=== PATIENT | male | born 1980 | race Caucasian/White ===

== ENCOUNTER → 2021-12-16 12:53 | Outpatient (BNVA) | payer OTHER, SELFPAY | PROVIDERS: PCP Physician Assistant Medical; Visit Provider Physician Assistant | DX: E66.01 Morbid (severe) obesity due to excess calories (principal); Z68.43 Body mass index [BMI] 50.0-59.9, adult; E03.9 Hypothyroidism, unspecified; G47.33 Obstructive sleep apnea (adult) (pediatric); Z99.89 Dependence on other enabling machines and devices | CPT/HCPCS: 99202 ==

== ENCOUNTER 2025-03-14 23:15 | Emergency (ER) | payer SELFPAY ==
[2025-03-14 23:27] VITALS: BP 135/82; PULSE 82; RESP 17; TEMP 36.6; O2SAT 97; BMI 41.3
[2025-03-14 23:44] LABS: MANUAL DIFF FLAG NO
[2025-03-14 23:46] LABS: Hematocrit 41.9 % (42.0-52.0); Hemoglobin 14.8 g/dl (14.0-18.0); Imm Gran Abs Auto 0.04 X10*3/uL (0.00-0.03); Imm Gran Pct Auto 0.4 % (0.0-0.4); Lymphocytes Absolute Auto 2.7 X10*3/uL (1.2-4.9); Mean Corpuscular HGB Conc 35.3 g/dl (31.0-36.0); Mean Corpuscular Hemoglobin 29.1 pg (27.0-33.0); Mean Corpuscular Volume 82.3 fL (80.0-98.0); NRBC Abs Auto 0.000 X10*3/uL (0.0-0.012); NRBC Pct Auto 0.0 /100WBC (0.0-0.2); Platelet Count 284 X10*3/uL (160-400); Red Blood Count 5.09 X10*6/uL (4.60-5.80); White Blood Count 9.4 X10*3/uL (4.8-10.8)
--- NOTE | 2025-03-15 00:02 | ED_ITS ---
HPI - General Adult General Chief complaint: Recheck/Abnormal Lab/Rx Stated complaint: high bs Time Seen by Provider: 03/14/25 23:59 Source: patient Mode of arrival: ambulatory Limitations: no limitations History of Present Illness ED Provider: Terry Rivera PA-C HPI narrative: 45-year-old male with history of T2DM, GERD, CELIA, hypothyroidism,presents to the ED tonight after checking his blood sugar and getting a read of 455 on his home glucose monitor after ingesting a large eclair for dinner. Patient states he takes metformin to control his diabetes, but has not seen a PCP in over a year due to not having access to health insurance. Patient states he is not having any symptoms, just decided to randomly check his blood sugar tonight, when he saw the high read he thought he should come to the ED for further evaluation. Denies chest pain, shortness of breath, vomiting, nausea, diarrhea, dizziness, lightheadedness, syncope, headaches, visual changes Related Data Home Medications ?Medication ?Instructions ?Recorded ?Confirmed levothyroxine 75 mcg capsule 75 mcg PO DAILY 12/16/21 omeprazole 20 mg capsule,delayed 20 mg PO DAILY release venlafaxine 150 mg tablet,extended 150 mg PO DAILY release 24 hr Allergies Allergy/AdvReac Type Severity Reaction Status Date / Time No Known Allergies Allergy Verified 03/14/25 23:29 Review of Systems 2 Review of Systems: CONST: Negative for fever, body aches and chills. HENT: Negative for neck pain/stiffness, headache, congestion, sore throat, swelling. EYES: Negative for discharge/pain or vision changes. RESP: Negative for cough/hemoptysis and shortness of breath. CV: Negative chest pain, difficulty breathing, palpitations. ABD: Negative pain, nausea, vomiting. : Negative increase frequency, dysuria, blood in urine or stool. MUSC: Negative for muscle aches, edema. SKIN: Negative rash, lesions/sores. NEURO: Negative headache, dizziness, weakness Yes all other systems are reviewed and are negative [facility] Family History Family History (Updated 12/16/21 @ 13:19 by Jazmin Ruiz) Mother Family history of thyroid problem Rheumatic arthritis of temporomandibular joint Father Diabetes Brother Kidney problem Daughter ADHD (attention deficit hyperactivity disorder) ADD (attention deficit disorder) Social History Social History (Updated 12/16/21 @ 13:15 by Jazmin Ruiz) Alcohol intake: former Patient Tobacco Use Status: Never used Tobacco Use of substances other than those prescribed or required for medical reasons: No Advance Directives: No Advance Directives Information Provided: Yes Do you have a plan to hurt others: No Plan Physical Exam ED Vital Signs: Vital Signs - 24 hr 03/14/25 23:27 Temperature 97.9 F Pulse Rate 82 Respiratory Rate 17 Blood Pressure 135/82 Pulse Oximetry 97 Oxygen Delivery Method Room Air BMI result Body Mass Index 41.3 GENERAL APPEARANCE: ?AxOx4, generally well-appearing, no acute distress. HEENT: ?NC, AT. MMM. EOMI, clear conjunctiva, oropharynx clear. HEART:? Normal rate and regular rhythm, normal S1/S1, no m/r/g LUNGS:? CTAB, moving air well. No crackles or wheezes are heard. EXTREMITIES: ?Without cyanosis, clubbing or edema. NEUROLOGICAL: ?Grossly nonfocal. Alert and oriented, moving all 4 extremities. Observed to ambulate with normal gait. Skin: ?Warm and dry without any rash. Medications Administered Discontinued Medications Generic Name Dose Route Start Last Admin Trade Name Freq PRN Reason Stop Dose Admin Lactated Ringer's 1,000 mls @ 999 mls/hr 03/15/25 01:10 03/15/25 03:19 Lr IV 03/15/25 02:10 Infused .Q1H1M ONE Infusion Insulin Human Lispro 6 unit 03/15/25 01:10 03/15/25 01:27 Insulin Lispro 100 Unit/Ml 3 Ml Vial SUBCUT 03/15/25 01:11 6 unit ONCE ONE Administration Medical Decision Making Medical Decision Making MDM Narrative: 45-year-old male with history of obesity, T2DM, GERD, presents to the ED tonight after checking his blood sugar and getting a read of 455 on his home glucose monitor after ingesting a large eclair for dinner. Patient states he takes metformin to control his diabetes, but has not seen a PCP in over a year due to not having access to health insurance. Patient states he is not having any symptoms, just decided to randomly check his blood sugar tonight, when he saw the high read he thought he should come to the ED for further evaluation. Labs reveal mild hyponatremia at 131, this is likely pseudohyponatremia due to elevated serum glucose at 590. Beta hydroxybutyrate mildly elevated at 1.42, no anion gap, VBG does not reveal acidosis- less likely DKA/HHS. Patient does not have any physical symptoms. Physical exam benign, lungs clear to auscultation, cardiac exam does not reveal any murmur, rubs or gallops. Abdomen nontender, nondistended. Patient started on IV fluids, given 6 units of subcutaneous insulin. We will reassess glucose level after fluids finish. Course 03:22- POC glucose 394 after 6 units insulin and 1L IV fluids, will recheck CBC and CMP. 04:20- labs rechecked, all WNL, pseudohyponatremia resolved at 1:37 a.m. glucose now 383. Patient is stable for discharge. Counseled patient to establish health insurance for PCP follow up, and following diabetic diet. Differential Diagnosis Differential Diagnoses: The differential diagnosis associated with the presentation includes DKA HHS electrolyte imbalance Elevated glucose Admission/Observation Consideration of admission/observation: Escalation of care including admission/observation considered Lab Data [facility] Lab Attestation statement: I reviewed the patient's lab results. 03/15/25 03:56 03/15/25 03:56 Labs: Lab Results 03/14/25 03/14/25 03/15/25 Range/Units 23:34 23:39 00:47 WBC 9.4 (4.8-10.8) X10*3/uL RBC 5.09 (4.60-5.80) X10*6/uL Hgb 14.8 (14.0-18.0) g/dl Hct 41.9 L (42.0-52.0) % MCV 82.3 (80.0-98.0) fL MCH 29.1 (27.0-33.0) pg MCHC 35.3 (31.0-36.0) g/dl RDW 13.1 (11.0-16.0) % Plt Count 284 (160-400) X10*3/uL MPV 9.0 L (9.4-12.4) fL Immature Gran % (Auto) 0.4 (0.0-0.4) % Neut % (Auto) 62.7 (45-73) % Lymph % (Auto) 28.3 (20-40) % [place] % (Auto) 6.3 (2-11) % Eos % (Auto) 2.0 (0-4) % Baso % (Auto) 0.3 (0-2) % Lymph # (Auto) 2.7 (1.2-4.9) X10*3/uL [place] # (Auto) 0.6 (0.1-1.2) X10*3/uL Eos # (Auto) 0.2 (0.0-0.4) X10*3/uL Baso # (Auto) 0.0 (0.0-0.2) X10*3/uL Abs Immat Gran (auto) 0.04 H (0.00-0.03) X10*3/uL Absolute Neuts (auto) 5.9 (2.0-8.3) x10*3/uL Absolute Nucleated RBC 0.000 (0.0-0.012) X10*3/uL Nucleated RBC % (auto) 0.0 (0.0-0.2) /100WBC VBG pH 7.36 (7.32-7.43) VBG pCO2 49 mmHg VBG pO2 47 mmHg VBG HCO3 28 H (22-26) mmol/L VBG O2 Saturation 73.0 % VBG Base Excess 2.2 mmol/L Sodium 131 L (135-145) mmol/L Potassium 4.2 (3.3-5.1) mmol/L Chloride 98 (96-108) mmol/L Carbon Dioxide 25 (22-29) mmol/L Anion Gap 12 (12-20) BUN 15 (9-16) mg/dL Creatinine 0.73 (0.5-1.4) mg/dL Estim Creat Clear Calc 175.4 Estimated GFR > 60 POC Glucose 525 H* (60-115) mg/dL Random Glucose 590 H* (60-115) mg/dL Calcium 9.0 (8.4-10.2) mg/dL Magnesium (1.6-2.6) mg/dL Total Bilirubin 0.5 (0.0-1.0) mg/dL Direct Bilirubin 0.2 (0.0-0.5) mg/dL AST 14 (5-37) U/L ALT 14 (0-40) U/L Alkaline Phosphatase 70 (39-117) U/L Total Protein 6.9 (6.5-8.0) g/dL Albumin 3.9 (3.5-5.0) g/dL Beta-Hydroxybutyrate 1.42 H (0.02-0.27) mmol/L 03/15/25 03/15/25 Range/Units 03:18 03:56 WBC 9.0 (4.8-10.8) X10*3/uL RBC 4.84 (4.60-5.80) X10*6/uL Hgb 14.0 (14.0-18.0) g/dl Hct 39.5 L (42.0-52.0) % MCV 81.6 (80.0-98.0) fL MCH 28.9 (27.0-33.0) pg MCHC 35.4 (31.0-36.0) g/dl RDW 13.1 (11.0-16.0) % Plt Count 279 (160-400) X10*3/uL MPV 9.0 L (9.4-12.4) fL Immature Gran % (Auto) 0.3 (0.0-0.4) % Neut % (Auto) 59.5 (45-73) % Lymph % (Auto) 31.0 (20-40) % [place] % (Auto) 6.5 (2-11) % Eos % (Auto) 2.4 (0-4) % Baso % (Auto) 0.3 (0-2) % Lymph # (Auto) 2.8 (1.2-4.9) X10*3/uL [place] # (Auto) 0.6 (0.1-1.2) X10*3/uL Eos # (Auto) 0.2 (0.0-0.4) X10*3/uL Baso # (Auto) 0.0 (0.0-0.2) X10*3/uL Abs Immat Gran (auto) 0.03 (0.00-0.03) X10*3/uL Absolute Neuts (auto) 5.3 (2.0-8.3) x10*3/uL Absolute Nucleated RBC 0.000 (0.0-0.012) X10*3/uL Nucleated RBC % (auto) 0.0 (0.0-0.2) /100WBC VBG pH (7.32-7.43) VBG pCO2 mmHg VBG pO2 mmHg VBG HCO3 (22-26) mmol/L VBG O2 Saturation % VBG Base Excess mmol/L Sodium 137 (135-145) mmol/L Potassium 3.9 (3.3-5.1) mmol/L Chloride 104 (96-108) mmol/L Carbon Dioxide 25 (22-29) mmol/L Anion Gap 12 (12-20) BUN 12 (9-16) mg/dL Creatinine 0.66 (0.5-1.4) mg/dL Estim Creat Clear Calc 194.0 Estimated GFR > 60 POC Glucose 394 H* (60-115) mg/dL Random Glucose 383 H* (60-115) mg/dL Calcium 8.7 (8.4-10.2) mg/dL Magnesium 2.0 (1.6-2.6) mg/dL Total Bilirubin 0.5 (0.0-1.0) mg/dL Direct Bilirubin (0.0-0.5) mg/dL AST 16 (5-37) U/L ALT 12 (0-40) U/L Alkaline Phosphatase 60 (39-117) U/L Total Protein 6.3 L (6.5-8.0) g/dL Albumin 3.6 (3.5-5.0) g/dL Beta-Hydroxybutyrate (0.02-0.27) mmol/L External Record Review External record reviewed: Inpatient record, Office record and Outpatient record Chronic Conditions Patient?s care impacted by: Diabetes Discharge Plan Discharge Clinical Impression: Blood glucose elevated Patient Disposition: Home, Self-Care Instructions: Diabetic Hyperglycemia (ED) Additional Instructions: You were evaluated in the ED today due to high blood sugar. Your labs were normal and did not reveal signs of diabetic ketoacidosis. Your blood glucose level while in the department was 590. To address your elevated blood sugar you were given IV fluids, and 6 units of insulin that was injected into your abdomen. It is important that you try to establish health care for yourself, as you need follow up with the primary care provider who can help you manage your diabetes. You should follow a diabetic diet at this time, cut out any added sugars to maintain your diabetes while you are trying to establish health care. Please return to the emergency department if you experience chest pain, shortness of breath, nausea, vomiting, confusion, dizziness, lightheadedness, difficulty walking, slurred speech, or any new/worsening/concerning symptoms. Prescriptions: No Action levothyroxine 75 mcg capsule 75 mcg PO DAILY omeprazole 20 mg capsule,delayed release(DR/EC) 20 mg PO DAILY venlafaxine 150 mg tablet extended release 24 hr 150 mg PO DAILY Print Language: [place]
[2025-03-15 00:04] LABS: Alanine Aminotransferase 14 U/L (0-40); Albumin Level 3.9 g/dL (3.5-5.0); Alkaline Phosphatase 70 U/L (39-117); Anion Gap 12 (12-20); Aspartate Amino Transferase 14 U/L (5-37); Blood Urea Nitrogen 15 mg/dL (9-16); Calcium 9.0 mg/dL (8.4-10.2); Carbon Dioxide 25 mmol/L (22-29); Chloride 98 mmol/L (96-108); Creatinine Clr Calc Pharmacy 175.4; Estimated Glomerular Filt Rate > 60; Potassium 4.2 mmol/L (3.3-5.1); Sodium 131 mmol/L (135-145); Total Protein 6.9 g/dL (6.5-8.0)
[2025-03-15 00:07] LABS: Glucose, Whole Blood 525 mg/dL (60-115)
[2025-03-15 00:47] LABS: Venous Blood Gas Refer to POC result
[2025-03-15 00:50] LABS: VBG HCO3 28 mmol/L (22-26); VBG O2 % Saturation 73.0 %
[2025-03-15] MEDS: Lactated Ringers 1,000 ML 999 ML IV (01:27)
--- NOTE | 2025-03-15 01:33 | PC.NURSE ---
pt medicated per MAR
--- NOTE | 2025-03-15 03:19 | PC.NURSE ---
fluids ended, POC checked, POC 394, ROSIE aware.
[2025-03-15 03:22] LABS: Glucose, Whole Blood 394 mg/dL (60-115)
[2025-03-15 04:00] LABS: Hematocrit 39.5 % (42.0-52.0); Hemoglobin 14.0 g/dl (14.0-18.0); Imm Gran Abs Auto 0.03 X10*3/uL (0.00-0.03); Imm Gran Pct Auto 0.3 % (0.0-0.4); Lymphocytes Absolute Auto 2.8 X10*3/uL (1.2-4.9); MANUAL DIFF FLAG NO; Mean Corpuscular HGB Conc 35.4 g/dl (31.0-36.0); Mean Corpuscular Hemoglobin 28.9 pg (27.0-33.0); Mean Corpuscular Volume 81.6 fL (80.0-98.0); NRBC Abs Auto 0.000 X10*3/uL (0.0-0.012); NRBC Pct Auto 0.0 /100WBC (0.0-0.2); Platelet Count 279 X10*3/uL (160-400); Red Blood Count 4.84 X10*6/uL (4.60-5.80); White Blood Count 9.0 X10*3/uL (4.8-10.8)
[2025-03-15 04:18] LABS: Alanine Aminotransferase 12 U/L (0-40); Albumin Level 3.6 g/dL (3.5-5.0); Alkaline Phosphatase 60 U/L (39-117); Anion Gap 12 (12-20); Aspartate Amino Transferase 16 U/L (5-37); Blood Urea Nitrogen 12 mg/dL (9-16); Calcium 8.7 mg/dL (8.4-10.2); Carbon Dioxide 25 mmol/L (22-29); Chloride 104 mmol/L (96-108); Creatinine Clr Calc Pharmacy 194.0; Estimated Glomerular Filt Rate > 60; Magnesium 2.0 mg/dL (1.6-2.6); Potassium 3.9 mmol/L (3.3-5.1); Sodium 137 mmol/L (135-145); Total Protein 6.3 g/dL (6.5-8.0)
[2025-03-15 04:34] VITALS: BP 113/75; PULSE 86; RESP 16; TEMP 36.6; O2SAT 95
== END 2025-03-15 04:37 | disposition home or self-care (01) ==
PROVIDERS: Emergency Provider Emergency Medicine
DX: E11.649 Type 2 diabetes mellitus with hypoglycemia without coma (principal); R79.89 Other specified abnormal findings of blood chemistry; R11.0 Nausea; Z79.84 Long term (current) use of oral hypoglycemic drugs; Z79.899 Other long term (current) drug therapy
CPT/HCPCS: 36415; 80048; 80053; 80076; 82010; 82803; 82947; 83735; 85025; 96360; 96361; 99284; J7120